=== PATIENT | male | born 1955 | race African-American/Black ===

== ENCOUNTER 2016-11-26 17:45 | Inpatient (IN) | payer MEDICARE, MEDICAID ==
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
[2016-11-26] MEDS ORDERED: Maalox 30 mL Cup PO PRN (20:35)
[2016-11-27] MEDS: Atorvastatin Calcium 10 MG TAB PO SCH ×2 (00:04→22:02)
[2016-11-27] MEDS: Lactulose 10 Gm/15 mL 30mL UDC PO SCH ×2 (00:04→22:03)
[2016-11-27 01:25] VITALS: BP 198/85
[2016-11-27] MEDS: Benztropine 1 MG TAB PO SCH ×3 (08:36→18:13)
[2016-11-27] MEDS: Levothyroxine 0.05 Mg Tab PO SCH ×2 (08:37→09:12)
[2016-11-27] MEDS: Aspirin 81mg Chewable Tab PO SCH (08:37)
[2016-11-27] MEDS: Pantoprazole 40 mg EC Tab PO SCH ×2 (08:37→09:12)
[2016-11-27] MEDS: Vitamin B Complex w/Vitamin C Tab PO SCH ×2 (08:37→09:12)
[2016-11-27] MEDS ORDERED: Influenza Vaccine 0.5 mL Syr IM ONE (09:00)
--- NOTE | 2016-11-27 19:22 | Internal Medicine Prog Note ---
Internal Medicine Subjective - Subjective Service Date: 11/27/16 ([facility] [id number]) Internal Medicine Objective - Results Recent Labs: Laboratory Last Values POC Glucose 80 MG/DL (70 - 105) 11/26/16 23:58 - Physical Exam Vitals and I&O: Vital Signs Temp 98.3 F 11/27/16 16:00 Pulse 60 11/27/16 18:13 Resp 16 11/27/16 16:00 BP 138/85 11/27/16 18:13 Pulse Ox 96 11/27/16 16:00 Intake & Output 11/27/16 11/27/16 11/28/16 06:59 18:59 06:59 Intake Total 240 Balance 240 Weight (lbs) 168 lb 168 lb Intake: Oral 240 Other: # Voids 1 3 Active Medications: Current Medications Acetaminophen/Hydrocodone Bitart ([place] 5mg/325mg) 1 tab PO Q6H PRN PRN Reason: PAIN Stop: 01/25/17 19:58 Al Hydrox/Mg Hydrox/Simethicone (Maalox) 30 ml PO DAILY PRN PRN Reason: Upset Stomach / Indigestion Stop: 01/25/17 20:34 Ascorbic Acid (Vitamin C) 500 mg PO DAILY [facility] Stop: 01/26/17 08:59 Last Admin: 11/27/16 09:11 Dose: Not Given Aspirin (Aspirin Chewable) 81 mg PO DAILY [facility] Stop: 01/26/17 08:59 Last Admin: 11/27/16 08:37 Dose: 81 mg Atorvastatin Calcium (Lipitor) 10 mg PO HS JOHN PRN Reason: Protocol Stop: 01/25/17 20:59 Last Admin: 11/27/16 00:04 Dose: 10 mg Benztropine Mesylate (Cogentin) 1 mg PO BID JOHN Stop: 01/26/17 08:59 Last Admin: 11/27/16 18:13 Dose: 1 mg Bisacodyl (Dulcolax 5 Mg Ec Tab) 10 mg PO DAILY PRN PRN Reason: Constipation Stop: 01/25/17 19:58 Divalproex Sodium (Depakote Dr) 500 mg PO DAILY JOHN PRN Reason: Protocol Stop: 01/26/17 08:59 Last Admin: 11/27/16 09:12 Dose: Not Given Folic Acid (Folate) 1 mg PO DAILY [facility] Stop: 01/26/17 08:59 Last Admin: 11/27/16 09:12 Dose: Not Given Lactulose (Cephulac) 10 gm PO HS JOHN Stop: 01/25/17 20:59 Last Admin: 11/27/16 00:04 Dose: 10 gm Levothyroxine Sodium (Synthroid) 0.05 mg PO DAILY JOHN Stop: 01/26/17 08:59 Last Admin: 11/27/16 09:12 Dose: Not Given Lisinopril (Zestril) 10 mg PO BID JOHN Stop: 01/26/17 08:59 Last Admin: 11/27/16 18:13 Dose: 10 mg Pantoprazole Sodium (Protonix) 40 mg PO DAILY JOHN Stop: 01/26/17 08:59 Last Admin: 11/27/16 09:12 Dose: Not Given Sevelamer HCl (Renagel) 2,400 mg PO AC [facility] Stop: 01/26/17 07:29 Last Admin: 11/27/16 18:12 Dose: 2,400 mg Thiamine HCl (Vitamin B1) 100 mg PO DAILY JOHN Stop: 01/26/17 08:59 Last Admin: 11/27/16 09:12 Dose: Not Given Vitamin B Complex/Vit C/Folic Acid (Vitamin B Complex W/Vitamin C) 1 tab PO DAILY JOHN Stop: 01/26/17 08:59 Last Admin: 11/27/16 09:12 Dose: Not Given Ziprasidone (Geodon) 60 mg PO BID [facility] Stop: 01/26/17 08:59 Internal Medicine Assmt/Plan - Assessment Assessment: ALOC FAILURE TO THRIVE 51/50 ESRD ON HD ANEMIA GERD COPD PARANOID SCHIZOPHRENIA Nutritional Asmnt/Malnutr-PDOC - Dietary Evaluation Malnutrition Findings (Please click <Entered> for more info): Nutritional Asmnt/Malnutrition Start: 11/27/16 16: 41 Text: Status: Complete Freq: Document 11/27/16 16:42 JIMMY (Rec: 11/27/16 16:52 JIMMY [email or web address]) Nutritional Asmnt/Malnutrition Patient General Information Nutritional Screening Consult Diagnosis ALOC, FTT Pertinent Medical Hx/Surgical Hx HTN, asthma/COPD, arthritis, HLD, chronic pain syndrome per MD notes Subjective Information RD received Nutrition Consult for FTT. Pt also seen for high risk trigger: FTT. Pt seen resting in bed while covered in blankets. Pt appeared of tall stature. Pt confirmed anthropometrics; pt stated he is 6'4" and UBW of 165 lb, 75 kg. Pt reported that he enjoys breakfast meals most, and prefers sausage, cream of wheat, hot cereals, hot foods, and Rice Krispies. Pt also requested double portions. RD to notify [facility] staff regarding pt's preferences. Pt denied any supplement use. Pt reported BM x1 (green in color, but solid ). Pt reported that he has been on dialysis since 2004. Per RN, no pending plans/ procedures. Per EMR, abd is soft and non- tender. I/O: 240/0 (+240 ml) per 12 hours. Current diet is adequate and appropriate. RD offered nutrition education; pt declined. Pt is familiar w/ foods high in potassium, sodium, and phosphorus when asked by RD. RD encouraged pt to try to maintain renal diet restrictions for improved kidney function. Current Diet Order/ Nutrition Support Renal Patient / S.O Can Pertinent Medications lipitor, renagel Pertinent Labs 11/26/16: POC BG 80 WNL Nutritional Hx/Data Height 6 ft 4 in Height (Calculated Centimeters) 193.0 Current Weight (lbs) 168 lb Weight (Calculated Kilograms) 76.2 Weight (Calculated Grams) 27520.5 Usual body Weight (lbs) 165 % Usual Body Weight 102 [place] Body Weight 202 lb, 92 kg % [place] Body Weight 83 Recent Weight Change No Weight Status Approriate GI Symptoms GI Symptoms None Food Allergies No Current %PO Fair (50-74%) Estimated Nutritional Goals BEE in Kcals: Using Current wt Calories/Kcals/Kg 25-30 kcal/kg CBW for maintenance Kcals Calculated 2843-0593 kcal/day Protein: Using Current wt Protein g/k.2-1.5 gm/kg CBW for renal failure on HD Protein Calculated 91-114 gm/day Fluid: ml Per MD (renal failure) Nutritional Problem 1. Problem Problem Inadequate nutritional intakes Etiology related to lack of appetite/ preference for foods Signs/Symptoms: as evidenced by pt report and Dx of FTT. Malnutrition Alert Is there a minimum of two criteria No selected? Query Text:Check all the applicable criteria. A minimum of two criteria are recommended for diagnosis of either severe or non-severe malnutrition. Malnutrition Related to Morbid Obesity Malnutrition related to morbid obesity No Intervention/Recommendation Recommendations by RD Dietary Education by RD1 Increase Calorie Intake Comments * Recommend continuing renal diet per MD Expected Outcomes/Goals Expected Outcomes/Goals - Monitor appetite and PO intakes w/ goal of pt meeting at least 75% of estimated nutritional needs, labs trending WNL, normal GI function, and skin integrity/ wt maintenance within 3-5 days 11/27/16 16:51 Dietitian Notes by Kenney Quinones. Charlotte Room/Bed: [facility] Dietitian Recommendation * Recommend continuing renal diet per MD Please refer to Nutrition Assessment for details. Initialized on 11/27/16 16:51 - END OF NOTE
--- NOTE | 2016-11-27 22:02 | History & Physical ---
ADMIT DATE: 11/27/2016 DICTATED FOR: Dr. Gabriel Coleman. CHIEF COMPLAINT: Altered mental status. HISTORY OF PRESENT ILLNESS: This is a 61-year-old male, who is a resident of [facility], who was brought here to [facility] for altered mental status. Also the patient has been refusing treatments with aggressive behavior. The patient is a hemodialysis patient, receiving dialysis every Tuesdays, and Saturdays. PAST MEDICAL HISTORY: Acute kidney failure, paranoid schizophrenia, hemodialysis, hyperlipidemia hypothyroidism, anemia, GERD and COPD. FAMILY HISTORY: Noncontributory. PAST SURGICAL HISTORY: . PSYCHIATRIC HISTORY: Paranoid schizophrenia. FAMILY HISTORY: Noncontributory. REVIEW OF SYSTEMS: GENERAL: Denies any fevers and chills. CARDIOVASCULAR: Denies chest pain. RESPIRATORY: Denies shortness of breath. GASTROINTESTINAL: Denies nausea, vomiting, abdominal pain. GENITOURINARY: Denies dysuria. All other systems are reviewed and are negative. PHYSICAL EXAMINATION: GENERAL: The patient is a well-developed, well-nourished, no acute distress. VITAL SIGNS: Temperature 98.3, heart rate 60, blood pressure 138/85, respirations 16, O2 of 96%. HEENT: Head; normocephalic, atraumatic. NECK: Supple. No mass. LUNGS: Clear bilaterally. HEART: Regular rhythm. ABDOMEN: Soft, nontender. LABORATORY DATA: The patient refused to have labs drawn. He states that he gets his labs drawn during on dialysis day. ASSESSMENT: Altered level of consciousness, failure to thrive, aggressive behavior on 5150, end stage renal disease on hemodialysis, paranoid schizophrenia, hyperlipidemia, gastroesophageal reflux disease, hypothyroidism, and chronic obstructive pulmonary disease. PLAN: The patient is admitted to the med/surg unit. We will get nephrology on the case as well as Psychiatry. Keep the patient on renal diet, hemodialysis as well. We will continue to follow this patient. JOB# [id number]
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
[2016-11-28] MEDS: Vitamin B Complex w/Vitamin C Tab PO SCH (08:43)
[2016-11-28] MEDS: Benztropine 1 MG TAB PO SCH ×2 (08:43→17:45)
[2016-11-28] MEDS: Aspirin 81mg Chewable Tab PO SCH (08:43)
[2016-11-28] MEDS: Pantoprazole 40 mg EC Tab PO SCH (08:44)
[2016-11-28] MEDS: Levothyroxine 0.05 Mg Tab PO SCH (08:46)
[2016-11-28 09:53] LABS: % EOSINOPHILS 8.3 % (0.0-5.0); % LYMPHOCYTES 22.1 % (20.0-50.0); % MONOCYTES 7.7 % (2.0-10.0); % NEUTROPHILS 61.9 % (40.0-80.0); HEMATOCRIT 26.1 % (41.0-60); HEMOGLOBIN 8.5 gm/dL (12-16); MEAN CELL VOLUME 83.3 fl (80-99); MEAN CORPUSCULAR HGB CONC 32.5 pg (28.0-36.0); PLATELET COUNT 194 Th/cmm (150-400); RED BLOOD COUNT 3.14 Mil/cmm (4.30-5.70); RED CELL DISTRIBUTION WIDTH 16.5 % (11.5-20.0); WHITE BLOOD COUNT 4.9 Th/cmm (4.8-10.8)
[2016-11-28 10:10] LABS: ALB/GLOB RATIO 1.1 (1.0-1.8); ANION GAP 10.4 (7.0-16.0); BILIRUBIN,TOTAL 0.4 mg/dL (0.3-1.0); BUN/CREATININE RATIO 4.1; CALCIUM SERUM 9.5 mg/dL (8.6-10.3); CARBON DIOXIDE 32.5 mEq/L (21.0-31.0); POTASSIUM SERUM 3.9 mEq/L (3.5-5.1)
[2016-11-28 10:12] LABS: CREATININE - SERUM 8.8 mg/dL (0.7-1.3)
--- NOTE | 2016-11-28 11:21 | General Progress Note ---
Subjective - Review of Systems Service Date: 11/28/16 (NEPHROLOGY NOTE) Events since last encounter: NONE NEW Subjective: NO COMPLAINTS. CONFUSED. GETTING HD. Objective - Results Result Diagrams: 11/28/16 09:40 11/28/16 09:40 Recent Labs: Laboratory Last Values WBC 4.9 Th/cmm (4.8-10.8) 11/28/16 09:40 RBC 3.14 Mil/cmm (4.30-5.70) L 11/28/16 09:40 Hgb 8.5 gm/dL (12-16) L 11/28/16 09:40 Hct 26.1 % (41.0-60) L 11/28/16 09:40 MCV 83.3 fl (80-99) 11/28/16 09:40 MCH 27.0 pg (26.0-30.0) 11/28/16 09:40 MCHC Differential 32.5 pg (28.0-36.0) 11/28/16 09:40 RDW 16.5 % (11.5-20.0) 11/28/16 09:40 Plt Count 194 Th/cmm (150-400) 11/28/16 09:40 MPV 8.0 fl 11/28/16 09:40 Neutrophils % 61.9 % (40.0-80.0) 11/28/16 09:40 Lymphocytes % 22.1 % (20.0-50.0) 11/28/16 09:40 Monocytes % 7.7 % (2.0-10.0) 11/28/16 09:40 Eosinophils % 8.3 % (0.0-5.0) H 11/28/16 09:40 Basophils % 0.0 % (0.0-2.0) 11/28/16 09:40 Sodium 137 mEq/L (136-145) 11/28/16 09:40 Potassium 3.9 mEq/L (3.5-5.1) 11/28/16 09:40 Chloride 98 mEq/L (98-107) 11/28/16 09:40 Carbon Dioxide 32.5 mEq/L (21.0-31.0) H 11/28/16 09:40 Anion Gap 10.4 (7.0-16.0) 11/28/16 09:40 BUN 36 mg/dL (7-25) H 11/28/16 09:40 Creatinine 8.8 mg/dL (0.7-1.3) H* 11/28/16 09:40 Est GFR ( Amer) 7.9 ml/min (>90) 11/28/16 09:40 Est GFR (Non-Af Amer) 6.6 ml/min 11/28/16 09:40 BUN/Creatinine Ratio 4.1 11/28/16 09:40 Glucose 133 mg/dL (70-105) H 11/28/16 09:40 POC Glucose 80 MG/DL (70 - 105) 11/26/16 23:58 Calcium 9.5 mg/dL (8.6-10.3) 11/28/16 09:40 Phosphorus 5.2 mg/dL (2.5-5.0) H 11/28/16 09:40 Total Bilirubin 0.4 mg/dL (0.3-1.0) 11/28/16 09:40 AST 12 U/L (13-39) L 11/28/16 09:40 ALT 5 U/L (7-52) L 11/28/16 09:40 Alkaline Phosphatase 126 U/L (34-104) H 11/28/16 09:40 Total Protein 5.8 gm/dL (6.0-8.3) L 11/28/16 09:40 Albumin 3.0 gm/dL (4.2-5.5) L 11/28/16 09:40 Globulin 2.8 gm/dL 11/28/16 09:40 Albumin/Globulin Ratio 1.1 (1.0-1.8) 11/28/16 09:40 - Physical Exam Vitals and I&O: Vital Signs Temp 98.3 F 11/28/16 08:00 Pulse 56 11/28/16 08:45 Resp 16 11/28/16 08:00 BP 142/67 11/28/16 08:00 Pulse Ox 96 11/28/16 08:00 Intake & Output 11/27/16 11/28/16 11/28/16 18:59 06:59 18:59 Weight (lbs) 76.204 kg Other: # Voids 3 Active Medications: Current Medications Acetaminophen/Hydrocodone Bitart ([place] 5mg/325mg) 1 tab PO Q6H PRN PRN Reason: PAIN Stop: 01/25/17 19:58 Al Hydrox/Mg Hydrox/Simethicone (Maalox) 30 ml PO DAILY PRN PRN Reason: Upset Stomach / Indigestion Stop: 01/25/17 20:34 Ascorbic Acid (Vitamin C) 500 mg PO DAILY [facility] Stop: 01/26/17 08:59 Last Admin: 11/28/16 08:46 Dose: Not Given Aspirin (Aspirin Chewable) 81 mg PO DAILY JOHN Stop: 01/26/17 08:59 Last Admin: 11/28/16 08:43 Dose: 81 mg Atorvastatin Calcium (Lipitor) 10 mg PO HS JOHN PRN Reason: Protocol Stop: 01/25/17 20:59 Last Admin: 11/27/16 22:02 Dose: Not Given Benztropine Mesylate (Cogentin) 1 mg PO BID [facility] Stop: 01/26/17 08:59 Last Admin: 11/28/16 08:43 Dose: 1 mg Bisacodyl (Dulcolax 5 Mg Ec Tab) 10 mg PO DAILY PRN PRN Reason: Constipation Stop: 01/25/17 19:58 Divalproex Sodium (Depakote Dr) 500 mg PO DAILY [facility] PRN Reason: Protocol Stop: 01/26/17 08:59 Last Admin: 11/28/16 08:44 Dose: Not Given Folic Acid (Folate) 1 mg PO DAILY [facility] Stop: 01/26/17 08:59 Last Admin: 11/28/16 08:44 Dose: Not Given Lactulose (Cephulac) 10 gm PO HS [facility] Stop: 01/25/17 20:59 Last Admin: 11/27/16 22:03 Dose: Not Given Levothyroxine Sodium (Synthroid) 0.05 mg PO DAILY [facility] Stop: 01/26/17 08:59 Last Admin: 11/28/16 08:46 Dose: 0.05 mg Lisinopril (Zestril) 10 mg PO BID [facility] Stop: 01/26/17 08:59 Last Admin: 11/28/16 08:45 Dose: Not Given Pantoprazole Sodium (Protonix) 40 mg PO DAILY [facility] Stop: 01/26/17 08:59 Last Admin: 11/28/16 08:44 Dose: 40 mg Sevelamer HCl (Renagel) 2,400 mg PO AC [facility] Stop: 01/26/17 07:29 Last Admin: 11/28/16 09:06 Dose: Not Given Thiamine HCl (Vitamin B1) 100 mg PO DAILY JOHN Stop: 01/26/17 08:59 Last Admin: 11/28/16 08:43 Dose: Not Given Vitamin B Complex/Vit C/Folic Acid (Vitamin B Complex W/Vitamin C) 1 tab PO DAILY JOHN Stop: 01/26/17 08:59 Last Admin: 11/28/16 08:43 Dose: Not Given Ziprasidone (Geodon) 60 mg PO BID JOHN Stop: 01/26/17 08:59 Physical Exam: AAOX3 NAD HEAD NC/AT SCLERAE ANICTERIC OP MOIST NECK SUPPLE CV RRR LUNGS CTA B ABD SOFT NTND EXT NO EDEMA RUE AVF CANNULATED ON HD Assessment/Plan - Problem List Patient Problems: All Active Problems AGGRESSION TOWARD OTHERS; 51/50 STATUS (Acute) - Assessment Assessment: 1. ESRD/DIALYSIS STATUS 2. HTN WITH ESRD 3. ANEMIA WITH ESRD 4. PSYCHOSIS 5. HYPERLIPIDEMIA - Plan Plan: DIALYSIS TODAY BP CONTROLLED F/U PSYCH SUPPORTIVE CARE SEEN & EXAMINED ON DIALYSIS Nutritional Asmnt/Malnutr-PDOC - Dietary Evaluation Malnutrition Findings (Please click <Entered> for more info): Nutritional Asmnt/Malnutrition Start: 11/27/16 16: 41 Text: Status: Complete Freq: Document 11/27/16 16:42 JIMMY (Rec: 11/27/16 16:52 [email or web address] [email or web address] -[email or web address]) Nutritional Asmnt/Malnutrition Patient General Information Nutritional Screening Consult Diagnosis ALOC, FTT Pertinent Medical Hx/Surgical Hx HTN, asthma/COPD, arthritis, HLD, chronic pain syndrome per MD notes Subjective Information RD received Nutrition Consult for FTT. Pt also seen for high risk trigger: FTT. Pt seen resting in bed while covered in blankets. Pt appeared of tall stature. Pt confirmed anthropometrics; pt stated he is 6'4" and UBW of 165 lb, 75 kg. Pt reported that he enjoys breakfast meals most, and prefers sausage, cream of wheat, hot cereals, hot foods, and Rice Krispies. Pt also requested double portions. RD to notify [facility] staff regarding pt's preferences. Pt denied any supplement use. Pt reported BM x1 (green in color, but solid ). Pt reported that he has been on dialysis since 2004. Per RN, no pending plans/ procedures. Per EMR, abd is soft and non- tender. I/O: 240/0 (+240 ml) per 12 hours. Current diet is adequate and appropriate. RD offered nutrition education; pt declined. Pt is familiar w/ foods high in potassium, sodium, and phosphorus when asked by RD. RD encouraged pt to try to maintain renal diet restrictions for improved kidney function. Current Diet Order/ Nutrition Support Renal Patient / S.O Can Pertinent Medications lipitor, renagel Pertinent Labs 11/26/16: POC BG 80 WNL Nutritional Hx/Data Height 1.93 m Height (Calculated Centimeters) 193.0 Current Weight (lbs) 76.204 kg Weight (Calculated Kilograms) 76.2 Weight (Calculated Grams) 52434.5 Usual body Weight (lbs) 165 % Usual Body Weight 102 [place] Body Weight 202 lb, 92 kg % [place] Body Weight 83 Recent Weight Change No Weight Status Approriate GI Symptoms GI Symptoms None Food Allergies No Current %PO Fair (50-74%) Estimated Nutritional Goals BEE in Kcals: Using Current wt Calories/Kcals/Kg 25-30 kcal/kg CBW for maintenance Kcals Calculated 0932-7039 kcal/day Protein: Using Current wt Protein g/k.2-1.5 gm/kg CBW for renal failure on HD Protein Calculated 91-114 gm/day Fluid: ml Per MD (renal failure) Nutritional Problem 1. Problem Problem Inadequate nutritional intakes Etiology related to lack of appetite/ preference for foods Signs/Symptoms: as evidenced by pt report and Dx of FTT. Malnutrition Alert Is there a minimum of two criteria No selected? Query Text:Check all the applicable criteria. A minimum of two criteria are recommended for diagnosis of either severe or non-severe malnutrition. Malnutrition Related to Morbid Obesity Malnutrition related to morbid obesity No Intervention/Recommendation Recommendations by RD Dietary Education by RD1 Increase Calorie Intake Comments * Recommend continuing renal diet per MD Expected Outcomes/Goals Expected Outcomes/Goals - Monitor appetite and PO intakes w/ goal of pt meeting at least 75% of estimated nutritional needs, labs trending WNL, normal GI function, and skin integrity/ wt maintenance within 3-5 days 11/27/16 16:51 Dietitian Notes by Ma. Charlotte Quinones Room/Bed: [facility] Dietitian Recommendation * Recommend continuing renal diet per MD Please refer to Nutrition Assessment for details. Initialized on 11/27/16 16:51 - END OF NOTE
--- NOTE | 2016-11-28 13:36 | Internal Medicine Prog Note ---
Internal Medicine Subjective - Subjective Patient seen and examined:: with staff, chart reviewed Patient is:: awake, verbal, interactive, confused Patient Complaints of:: congestion, unable to sleep Per staff patient has:: no adverse event, eating well, refusing care Internal Medicine Objective - Results Result Diagrams: 11/28/16 09:40 11/28/16 09:40 Recent Labs: Laboratory Last Values WBC 4.9 Th/cmm (4.8-10.8) 11/28/16 09:40 RBC 3.14 Mil/cmm (4.30-5.70) L 11/28/16 09:40 Hgb 8.5 gm/dL (12-16) L 11/28/16 09:40 Hct 26.1 % (41.0-60) L 11/28/16 09:40 MCV 83.3 fl (80-99) 11/28/16 09:40 MCH 27.0 pg (26.0-30.0) 11/28/16 09:40 MCHC Differential 32.5 pg (28.0-36.0) 11/28/16 09:40 RDW 16.5 % (11.5-20.0) 11/28/16 09:40 Plt Count 194 Th/cmm (150-400) 11/28/16 09:40 MPV 8.0 fl 11/28/16 09:40 Neutrophils % 61.9 % (40.0-80.0) 11/28/16 09:40 Lymphocytes % 22.1 % (20.0-50.0) 11/28/16 09:40 Monocytes % 7.7 % (2.0-10.0) 11/28/16 09:40 Eosinophils % 8.3 % (0.0-5.0) H 11/28/16 09:40 Basophils % 0.0 % (0.0-2.0) 11/28/16 09:40 Sodium 137 mEq/L (136-145) 11/28/16 09:40 Potassium 3.9 mEq/L (3.5-5.1) 11/28/16 09:40 Chloride 98 mEq/L (98-107) 11/28/16 09:40 Carbon Dioxide 32.5 mEq/L (21.0-31.0) H 11/28/16 09:40 Anion Gap 10.4 (7.0-16.0) 11/28/16 09:40 BUN 36 mg/dL (7-25) H 11/28/16 09:40 Creatinine 8.8 mg/dL (0.7-1.3) H* 11/28/16 09:40 Est GFR ( Amer) 7.9 ml/min (>90) 11/28/16 09:40 Est GFR (Non-Af Amer) 6.6 ml/min 11/28/16 09:40 BUN/Creatinine Ratio 4.1 11/28/16 09:40 Glucose 133 mg/dL (70-105) H 11/28/16 09:40 POC Glucose 80 MG/DL (70 - 105) 11/26/16 23:58 Calcium 9.5 mg/dL (8.6-10.3) 11/28/16 09:40 Phosphorus 5.2 mg/dL (2.5-5.0) H 11/28/16 09:40 Total Bilirubin 0.4 mg/dL (0.3-1.0) 11/28/16 09:40 AST 12 U/L (13-39) L 11/28/16 09:40 ALT 5 U/L (7-52) L 11/28/16 09:40 Alkaline Phosphatase 126 U/L (34-104) H 11/28/16 09:40 Total Protein 5.8 gm/dL (6.0-8.3) L 11/28/16 09:40 Albumin 3.0 gm/dL (4.2-5.5) L 11/28/16 09:40 Globulin 2.8 gm/dL 11/28/16 09:40 Albumin/Globulin Ratio 1.1 (1.0-1.8) 11/28/16 09:40 - Physical Exam Vitals and I&O: Vital Signs Temp 98.3 F 11/28/16 08:00 Pulse 56 11/28/16 08:45 Resp 16 11/28/16 08:00 BP 142/67 11/28/16 08:00 Pulse Ox 96 11/28/16 08:00 Intake & Output 11/27/16 11/28/16 11/28/16 18:59 06:59 18:59 Weight (lbs) 76.204 kg Other: # Voids 3 Active Medications: Current Medications Acetaminophen/Hydrocodone Bitart ([place] 5mg/325mg) 1 tab PO Q6H PRN PRN Reason: PAIN Stop: 01/25/17 19:58 Al Hydrox/Mg Hydrox/Simethicone (Maalox) 30 ml PO DAILY PRN PRN Reason: Upset Stomach / Indigestion Stop: 01/25/17 20:34 Ascorbic Acid (Vitamin C) 500 mg PO DAILY JOHN Stop: 01/26/17 08:59 Last Admin: 11/28/16 08:46 Dose: Not Given Aspirin (Aspirin Chewable) 81 mg PO DAILY JOHN Stop: 01/26/17 08:59 Last Admin: 11/28/16 08:43 Dose: 81 mg Atorvastatin Calcium (Lipitor) 10 mg PO HS JOHN PRN Reason: Protocol Stop: 01/25/17 20:59 Last Admin: 11/27/16 22:02 Dose: Not Given Benztropine Mesylate (Cogentin) 1 mg PO BID JOHN Stop: 01/26/17 08:59 Last Admin: 11/28/16 08:43 Dose: 1 mg Bisacodyl (Dulcolax 5 Mg Ec Tab) 10 mg PO DAILY PRN PRN Reason: Constipation Stop: 01/25/17 19:58 Divalproex Sodium (Depakote Dr) 500 mg PO DAILY JOHN PRN Reason: Protocol Stop: 01/26/17 08:59 Last Admin: 11/28/16 08:44 Dose: Not Given Folic Acid (Folate) 1 mg PO DAILY JOHN Stop: 01/26/17 08:59 Last Admin: 11/28/16 08:44 Dose: Not Given Lactulose (Cephulac) 10 gm PO HS JOHN Stop: 01/25/17 20:59 Last Admin: 11/27/16 22:03 Dose: Not Given Levothyroxine Sodium (Synthroid) 0.05 mg PO DAILY JOHN Stop: 01/26/17 08:59 Last Admin: 11/28/16 08:46 Dose: 0.05 mg Lisinopril (Zestril) 10 mg PO BID JOHN Stop: 01/26/17 08:59 Last Admin: 11/28/16 08:45 Dose: Not Given Pantoprazole Sodium (Protonix) 40 mg PO DAILY JOHN Stop: 01/26/17 08:59 Last Admin: 11/28/16 08:44 Dose: 40 mg Sevelamer Carbonate (Renvela) 2,400 mg PO AC JOHN Stop: 01/26/17 07:29 Thiamine HCl (Vitamin B1) 100 mg PO DAILY JOHN Stop: 01/26/17 08:59 Last Admin: 11/28/16 08:43 Dose: Not Given Vitamin B Complex/Vit C/Folic Acid (Vitamin B Complex W/Vitamin C) 1 tab PO DAILY JOHN Stop: 01/26/17 08:59 Last Admin: 11/28/16 08:43 Dose: Not Given Ziprasidone (Geodon) 60 mg PO BID JOHN Stop: 01/26/17 08:59 General: congested, demented HEENT: NC/AT, PERRLA, EOMI, poor dentition Neck: Supple, No JVD, No thyromegaly Lungs: CTAB Cardiovascular: RRR, Normal S1, Normal S2, without murmur Abdomen: soft, non-tender, globular Extremities: excoriation, contracture Neurological: no change, lethargic, disorganized Internal Medicine Assmt/Plan - Assessment Assessment: ALOC FAILURE TO THRIVE 51/50 ESRD ON HD ANEMIA GERD COPD PARANOID SCHIZOPHRENIA - Plan Plan: cont on hd per renal renal diet will review labx psych follow up on 5150 dw rn Nutritional Asmnt/Malnutr-PDOC - Dietary Evaluation Malnutrition Findings (Please click <Entered> for more info): Nutritional Asmnt/Malnutrition Start: 11/27/16 16: 41 Text: Status: Complete Freq: Document 11/27/16 16:42 JIMMY (Rec: 11/27/16 16:52 JIMMY HOLLINGSWORTH [email or web address]) Nutritional Asmnt/Malnutrition Patient General Information Nutritional Screening Consult Diagnosis ALOC, FTT Pertinent Medical Hx/Surgical Hx HTN, asthma/COPD, arthritis, HLD, chronic pain syndrome per MD notes Subjective Information RD received Nutrition Consult for FTT. Pt also seen for high risk trigger: FTT. Pt seen resting in bed while covered in blankets. Pt appeared of tall stature. Pt confirmed anthropometrics; pt stated he is 6'4" and UBW of 165 lb, 75 kg. Pt reported that he enjoys breakfast meals most, and prefers sausage, cream of wheat, hot cereals, hot foods, and Rice Krispies. Pt also requested double portions. RD to notify [facility] staff regarding pt's preferences. Pt denied any supplement use. Pt reported BM x1 (green in color, but solid ). Pt reported that he has been on dialysis since 2004. Per RN, no pending plans/ procedures. Per EMR, abd is soft and non- tender. I/O: 240/0 (+240 ml) per 12 hours. Current diet is adequate and appropriate. RD offered nutrition education; pt declined. Pt is familiar w/ foods high in potassium, sodium, and phosphorus when asked by RD. RD encouraged pt to try to maintain renal diet restrictions for improved kidney function. Current Diet Order/ Nutrition Support Renal Patient / S.O Can Pertinent Medications lipitor, renagel Pertinent Labs 11/26/16: POC BG 80 WNL Nutritional Hx/Data Height 1.93 m Height (Calculated Centimeters) 193.0 Current Weight (lbs) 76.204 kg Weight (Calculated Kilograms) 76.2 Weight (Calculated Grams) 82237.5 Usual body Weight (lbs) 165 % Usual Body Weight 102 [place] Body Weight 202 lb, 92 kg % [place] Body Weight 83 Recent Weight Change No Weight Status Approriate GI Symptoms GI Symptoms None Food Allergies No Current %PO Fair (50-74%) Estimated Nutritional Goals BEE in Kcals: Using Current wt Calories/Kcals/Kg 25-30 kcal/kg CBW for maintenance Kcals Calculated 7701-9342 kcal/day Protein: Using Current wt Protein g/k.2-1.5 gm/kg CBW for renal failure on HD Protein Calculated 91-114 gm/day Fluid: ml Per MD (renal failure) Nutritional Problem 1. Problem Problem Inadequate nutritional intakes Etiology related to lack of appetite/ preference for foods Signs/Symptoms: as evidenced by pt report and Dx of FTT. Malnutrition Alert Is there a minimum of two criteria No selected? Query Text:Check all the applicable criteria. A minimum of two criteria are recommended for diagnosis of either severe or non-severe malnutrition. Malnutrition Related to Morbid Obesity Malnutrition related to morbid obesity No Intervention/Recommendation Recommendations by RD Dietary Education by RD1 Increase Calorie Intake Comments * Recommend continuing renal diet per MD Expected Outcomes/Goals Expected Outcomes/Goals - Monitor appetite and PO intakes w/ goal of pt meeting at least 75% of estimated nutritional needs, labs trending WNL, normal GI function, and skin integrity/ wt maintenance within 3-5 days 11/27/16 16:51 Dietitian Notes by Kenney Quinones. [facility] Room/Bed: [facility] Dietitian Recommendation * Recommend continuing renal diet per MD Please refer to Nutrition Assessment for details. Initialized on 11/27/16 16:51 - END OF NOTE
[2016-11-28] MEDS: Atorvastatin Calcium 10 MG TAB PO SCH (20:49)
[2016-11-28] MEDS: Lactulose 10 Gm/15 mL 30mL UDC PO SCH (20:50)
[2016-11-29] MEDS: Vitamin B Complex w/Vitamin C Tab PO SCH ×2 (08:11→08:21)
[2016-11-29] MEDS: Benztropine 1 MG TAB PO SCH ×2 (08:11→17:01)
[2016-11-29] MEDS: Pantoprazole 40 mg EC Tab PO SCH (08:12)
[2016-11-29] MEDS: Aspirin 81mg Chewable Tab PO SCH (08:13)
[2016-11-29] MEDS: Levothyroxine 0.05 Mg Tab PO SCH (08:13)
--- NOTE | 2016-11-29 10:17 | General Progress Note ---
Subjective - Review of Systems Service Date: 11/29/16 Events since last encounter: none new dialyzed yesterday Subjective: HE DENIES COMPLAINTS. Objective - Results Result Diagrams: 11/28/16 09:40 11/28/16 09:40 Recent Labs: Laboratory Last Values WBC 4.9 Th/cmm (4.8-10.8) 11/28/16 09:40 RBC 3.14 Mil/cmm (4.30-5.70) L 11/28/16 09:40 Hgb 8.5 gm/dL (12-16) L 11/28/16 09:40 Hct 26.1 % (41.0-60) L 11/28/16 09:40 MCV 83.3 fl (80-99) 11/28/16 09:40 MCH 27.0 pg (26.0-30.0) 11/28/16 09:40 MCHC Differential 32.5 pg (28.0-36.0) 11/28/16 09:40 RDW 16.5 % (11.5-20.0) 11/28/16 09:40 Plt Count 194 Th/cmm (150-400) 11/28/16 09:40 MPV 8.0 fl 11/28/16 09:40 Neutrophils % 61.9 % (40.0-80.0) 11/28/16 09:40 Lymphocytes % 22.1 % (20.0-50.0) 11/28/16 09:40 Monocytes % 7.7 % (2.0-10.0) 11/28/16 09:40 Eosinophils % 8.3 % (0.0-5.0) H 11/28/16 09:40 Basophils % 0.0 % (0.0-2.0) 11/28/16 09:40 Sodium 137 mEq/L (136-145) 11/28/16 09:40 Potassium 3.9 mEq/L (3.5-5.1) 11/28/16 09:40 Chloride 98 mEq/L (98-107) 11/28/16 09:40 Carbon Dioxide 32.5 mEq/L (21.0-31.0) H 11/28/16 09:40 Anion Gap 10.4 (7.0-16.0) 11/28/16 09:40 BUN 36 mg/dL (7-25) H 11/28/16 09:40 Creatinine 8.8 mg/dL (0.7-1.3) H* 11/28/16 09:40 Est GFR ( Amer) 7.9 ml/min (>90) 11/28/16 09:40 Est GFR (Non-Af Amer) 6.6 ml/min 11/28/16 09:40 BUN/Creatinine Ratio 4.1 11/28/16 09:40 Glucose 133 mg/dL (70-105) H 11/28/16 09:40 POC Glucose 80 MG/DL (70 - 105) 11/26/16 23:58 Calcium 9.5 mg/dL (8.6-10.3) 11/28/16 09:40 Phosphorus 5.2 mg/dL (2.5-5.0) H 11/28/16 09:40 Total Bilirubin 0.4 mg/dL (0.3-1.0) 11/28/16 09:40 AST 12 U/L (13-39) L 11/28/16 09:40 ALT 5 U/L (7-52) L 11/28/16 09:40 Alkaline Phosphatase 126 U/L (34-104) H 11/28/16 09:40 Total Protein 5.8 gm/dL (6.0-8.3) L 11/28/16 09:40 Albumin 3.0 gm/dL (4.2-5.5) L 11/28/16 09:40 Globulin 2.8 gm/dL 11/28/16 09:40 Albumin/Globulin Ratio 1.1 (1.0-1.8) 11/28/16 09:40 - Physical Exam Vitals and I&O: Vital Signs Temp 98 F 11/29/16 04:00 Pulse 90 11/29/16 08:12 Resp 16 11/29/16 08:25 BP 158/95 11/29/16 08:12 Pulse Ox 98 11/29/16 04:00 Intake & Output 11/28/16 11/29/16 11/29/16 18:59 06:59 18:59 Intake Total 500 200 Output Total 1999 Balance -1500 200 Weight (lbs) 76.204 kg 74.389 kg Intake: Oral 500 200 Output: Hemodialysis 1999 Other: # Voids 0 1 # Bowel Movements 0 Active Medications: Current Medications Acetaminophen/Hydrocodone Bitart ([place] 5mg/325mg) 1 tab PO Q6H PRN PRN Reason: PAIN Stop: 01/25/17 19:58 Al Hydrox/Mg Hydrox/Simethicone (Maalox) 30 ml PO DAILY PRN PRN Reason: Upset Stomach / Indigestion Stop: 01/25/17 20:34 Ascorbic Acid (Vitamin C) 500 mg PO DAILY [facility] Stop: 01/26/17 08:59 Last Admin: 11/29/16 08:20 Dose: Not Given Aspirin (Aspirin Chewable) 81 mg PO DAILY JOHN Stop: 01/26/17 08:59 Last Admin: 11/29/16 08:13 Dose: 81 mg Atorvastatin Calcium (Lipitor) 10 mg PO HS JOHN PRN Reason: Protocol Stop: 01/25/17 20:59 Last Admin: 11/28/16 20:49 Dose: Not Given Benztropine Mesylate (Cogentin) 1 mg PO BID [facility] Stop: 01/26/17 08:59 Last Admin: 11/29/16 08:11 Dose: 1 mg Bisacodyl (Dulcolax 5 Mg Ec Tab) 10 mg PO DAILY PRN PRN Reason: Constipation Stop: 01/25/17 19:58 Divalproex Sodium (Depakote Dr) 500 mg PO DAILY [facility] PRN Reason: Protocol Stop: 01/26/17 08:59 Last Admin: 11/29/16 08:20 Dose: Not Given Folic Acid (Folate) 1 mg PO DAILY [facility] Stop: 01/26/17 08:59 Last Admin: 11/29/16 08:20 Dose: Not Given Lactulose (Cephulac) 10 gm PO HS [facility] Stop: 01/25/17 20:59 Last Admin: 11/28/16 20:50 Dose: Not Given Levothyroxine Sodium (Synthroid) 0.05 mg PO DAILY [facility] Stop: 01/26/17 08:59 Last Admin: 11/29/16 08:13 Dose: 0.05 mg Lisinopril (Zestril) 10 mg PO BID JOHN Stop: 01/26/17 08:59 Last Admin: 11/29/16 08:12 Dose: 10 mg Pantoprazole Sodium (Protonix) 40 mg PO DAILY [facility] Stop: 01/26/17 08:59 Last Admin: 11/29/16 08:12 Dose: 40 mg Sevelamer Carbonate (Renvela) 2,400 mg PO AC JOHN Stop: 01/26/17 07:29 Last Admin: 11/29/16 09:44 Dose: Not Given Thiamine HCl (Vitamin B1) 100 mg PO DAILY JOHN Stop: 01/26/17 08:59 Last Admin: 11/29/16 08:20 Dose: Not Given Vitamin B Complex/Vit C/Folic Acid (Vitamin B Complex W/Vitamin C) 1 tab PO DAILY JOHN Stop: 01/26/17 08:59 Last Admin: 11/29/16 08:21 Dose: Not Given Ziprasidone (Geodon) 60 mg PO BID JOHN Stop: 01/26/17 08:59 Last Admin: 11/29/16 09:48 Dose: 60 mg Physical Exam: AAOX3 NAD HEAD NC/AT SCLERAE ANICTERIC OP MOIST NECK SUPPLE CV RRR LUNGS CTA B ABD SOFT NTND EXT NO EDEMA RUE AVF +thrill/bruit Assessment/Plan - Problem List Patient Problems: All Active Problems AGGRESSION TOWARD OTHERS; 51/50 STATUS (Acute) - Assessment Assessment: 1. ESRD/DIALYSIS STATUS 2. HTN WITH ESRD 3. ANEMIA WITH ESRD 4. PSYCHOSIS 5. HYPERLIPIDEMIA - Plan Plan: DIALYSIS WEDNESDAY BP CONTROLLED F/U PSYCH SUPPORTIVE CARE ADD EPOGEN Nutritional Asmnt/Malnutr-PDOC - Dietary Evaluation Malnutrition Findings (Please click <Entered> for more info): Nutritional Asmnt/Malnutrition Start: 11/27/16 16: 41 Text: Status: Complete Freq: Document 11/27/16 16:42 JIMMY (Rec: 11/27/16 16:52 JIMMY HOLLING[place]ORTH -[email or web address]) Nutritional Asmnt/Malnutrition Patient General Information Nutritional Screening Consult Diagnosis ALOC, FTT Pertinent Medical Hx/Surgical Hx HTN, asthma/COPD, arthritis, HLD, chronic pain syndrome per MD notes Subjective Information RD received Nutrition Consult for FTT. Pt also seen for high risk trigger: FTT. Pt seen resting in bed while covered in blankets. Pt appeared of tall stature. Pt confirmed anthropometrics; pt stated he is 6'4" and UBW of 165 lb, 75 kg. Pt reported that he enjoys breakfast meals most, and prefers sausage, cream of wheat, hot cereals, hot foods, and Rice Krispies. Pt also requested double portions. RD to notify [facility] staff regarding pt's preferences. Pt denied any supplement use. Pt reported BM x1 (green in color, but solid ). Pt reported that he has been on dialysis since 2004. Per RN, no pending plans/ procedures. Per EMR, abd is soft and non- tender. I/O: 240/0 (+240 ml) per 12 hours. Current diet is adequate and appropriate. RD offered nutrition education; pt declined. Pt is familiar w/ foods high in potassium, sodium, and phosphorus when asked by RD. RD encouraged pt to try to maintain renal diet restrictions for improved kidney function. Current Diet Order/ Nutrition Support Renal Patient / S.O Can Pertinent Medications lipitor, renagel Pertinent Labs 11/26/16: POC BG 80 WNL Nutritional Hx/Data Height 1.93 m Height (Calculated Centimeters) 193.0 Current Weight (lbs) 76.204 kg Weight (Calculated Kilograms) 76.2 Weight (Calculated Grams) 31672.5 Usual body Weight (lbs) 165 % Usual Body Weight 102 [place] Body Weight 202 lb, 92 kg % [place] Body Weight 83 Recent Weight Change No Weight Status Approriate GI Symptoms GI Symptoms None Food Allergies No Current %PO Fair (50-74%) Estimated Nutritional Goals BEE in Kcals: Using Current wt Calories/Kcals/Kg 25-30 kcal/kg CBW for maintenance Kcals Calculated 5577-9814 kcal/day Protein: Using Current wt Protein g/k.2-1.5 gm/kg CBW for renal failure on HD Protein Calculated 91-114 gm/day Fluid: ml Per MD (renal failure) Nutritional Problem 1. Problem Problem Inadequate nutritional intakes Etiology related to lack of appetite/ preference for foods Signs/Symptoms: as evidenced by pt report and Dx of FTT. Malnutrition Alert Is there a minimum of two criteria No selected? Query Text:Check all the applicable criteria. A minimum of two criteria are recommended for diagnosis of either severe or non-severe malnutrition. Malnutrition Related to Morbid Obesity Malnutrition related to morbid obesity No Intervention/Recommendation Recommendations by RD Dietary Education by RD1 Increase Calorie Intake Comments * Recommend continuing renal diet per MD Expected Outcomes/Goals Expected Outcomes/Goals - Monitor appetite and PO intakes w/ goal of pt meeting at least 75% of estimated nutritional needs, labs trending WNL, normal GI function, and skin integrity/ wt maintenance within 3-5 days 11/27/16 16:51 Dietitian Notes by Kenney Quinones. [facility] Room/Bed: [facility] Dietitian Recommendation * Recommend continuing renal diet per MD Please refer to Nutrition Assessment for details. Initialized on 11/27/16 16:51 - END OF NOTE
--- NOTE | 2016-11-29 11:52 | Internal Medicine Prog Note ---
Internal Medicine Subjective - Subjective Patient seen and examined:: with staff, chart reviewed Patient is:: awake, verbal, interactive, confused Patient Complaints of:: congestion, unable to sleep Per staff patient has:: no adverse event, eating well, refusing care Internal Medicine Objective - Results Result Diagrams: 11/28/16 09:40 11/28/16 09:40 Recent Labs: Laboratory Last Values WBC 4.9 Th/cmm (4.8-10.8) 11/28/16 09:40 RBC 3.14 Mil/cmm (4.30-5.70) L 11/28/16 09:40 Hgb 8.5 gm/dL (12-16) L 11/28/16 09:40 Hct 26.1 % (41.0-60) L 11/28/16 09:40 MCV 83.3 fl (80-99) 11/28/16 09:40 MCH 27.0 pg (26.0-30.0) 11/28/16 09:40 MCHC Differential 32.5 pg (28.0-36.0) 11/28/16 09:40 RDW 16.5 % (11.5-20.0) 11/28/16 09:40 Plt Count 194 Th/cmm (150-400) 11/28/16 09:40 MPV 8.0 fl 11/28/16 09:40 Neutrophils % 61.9 % (40.0-80.0) 11/28/16 09:40 Lymphocytes % 22.1 % (20.0-50.0) 11/28/16 09:40 Monocytes % 7.7 % (2.0-10.0) 11/28/16 09:40 Eosinophils % 8.3 % (0.0-5.0) H 11/28/16 09:40 Basophils % 0.0 % (0.0-2.0) 11/28/16 09:40 Sodium 137 mEq/L (136-145) 11/28/16 09:40 Potassium 3.9 mEq/L (3.5-5.1) 11/28/16 09:40 Chloride 98 mEq/L (98-107) 11/28/16 09:40 Carbon Dioxide 32.5 mEq/L (21.0-31.0) H 11/28/16 09:40 Anion Gap 10.4 (7.0-16.0) 11/28/16 09:40 BUN 36 mg/dL (7-25) H 11/28/16 09:40 Creatinine 8.8 mg/dL (0.7-1.3) H* 11/28/16 09:40 Est GFR ( Amer) 7.9 ml/min (>90) 11/28/16 09:40 Est GFR (Non-Af Amer) 6.6 ml/min 11/28/16 09:40 BUN/Creatinine Ratio 4.1 11/28/16 09:40 Glucose 133 mg/dL (70-105) H 11/28/16 09:40 POC Glucose 80 MG/DL (70 - 105) 11/26/16 23:58 Calcium 9.5 mg/dL (8.6-10.3) 11/28/16 09:40 Phosphorus 5.2 mg/dL (2.5-5.0) H 11/28/16 09:40 Total Bilirubin 0.4 mg/dL (0.3-1.0) 11/28/16 09:40 AST 12 U/L (13-39) L 11/28/16 09:40 ALT 5 U/L (7-52) L 11/28/16 09:40 Alkaline Phosphatase 126 U/L (34-104) H 11/28/16 09:40 Total Protein 5.8 gm/dL (6.0-8.3) L 11/28/16 09:40 Albumin 3.0 gm/dL (4.2-5.5) L 11/28/16 09:40 Globulin 2.8 gm/dL 11/28/16 09:40 Albumin/Globulin Ratio 1.1 (1.0-1.8) 11/28/16 09:40 - Physical Exam Vitals and I&O: Vital Signs Temp 98.2 F 11/29/16 08:00 Pulse 90 11/29/16 08:12 Resp 16 11/29/16 08:25 BP 158/95 11/29/16 08:12 Pulse Ox 95 11/29/16 08:00 Intake & Output 11/28/16 11/29/16 11/29/16 18:59 06:59 18:59 Intake Total 500 200 Output Total 2000 Balance -1500 200 Weight (lbs) 76.204 kg 74.389 kg Intake: Oral 500 200 Output: Hemodialysis 2000 Other: # Voids 0 1 # Bowel Movements 0 Active Medications: Current Medications Acetaminophen/Hydrocodone Bitart ([place] 5mg/325mg) 1 tab PO Q6H PRN PRN Reason: PAIN Stop: 01/25/17 19:58 Al Hydrox/Mg Hydrox/Simethicone (Maalox) 30 ml PO DAILY PRN PRN Reason: Upset Stomach / Indigestion Stop: 01/25/17 20:34 Ascorbic Acid (Vitamin C) 500 mg PO DAILY [facility] Stop: 01/26/17 08:59 Last Admin: 11/29/16 08:20 Dose: Not Given Aspirin (Aspirin Chewable) 81 mg PO DAILY [facility] Stop: 01/26/17 08:59 Last Admin: 11/29/16 08:13 Dose: 81 mg Atorvastatin Calcium (Lipitor) 10 mg PO HS JOHN PRN Reason: Protocol Stop: 01/25/17 20:59 Last Admin: 11/28/16 20:49 Dose: Not Given Benztropine Mesylate (Cogentin) 1 mg PO BID [facility] Stop: 01/26/17 08:59 Last Admin: 11/29/16 08:11 Dose: 1 mg Bisacodyl (Dulcolax 5 Mg Ec Tab) 10 mg PO DAILY PRN PRN Reason: Constipation Stop: 01/25/17 19:58 Divalproex Sodium (Depakote Dr) 500 mg PO DAILY [facility] PRN Reason: Protocol Stop: 01/26/17 08:59 Last Admin: 11/29/16 08:20 Dose: Not Given Epoetin Julius (Epogen) 5,000 units SUBQ TuThSa [facility] Stop: 01/30/17 10:16 Folic Acid (Folate) 1 mg PO DAILY [facility] Stop: 01/26/17 08:59 Last Admin: 11/29/16 08:20 Dose: Not Given Lactulose (Cephulac) 10 gm PO HS [facility] Stop: 01/25/17 20:59 Last Admin: 11/28/16 20:50 Dose: Not Given Levothyroxine Sodium (Synthroid) 0.05 mg PO DAILY JOHN Stop: 01/26/17 08:59 Last Admin: 11/29/16 08:13 Dose: 0.05 mg Lisinopril (Zestril) 10 mg PO BID [facility] Stop: 01/26/17 08:59 Last Admin: 11/29/16 08:12 Dose: 10 mg Pantoprazole Sodium (Protonix) 40 mg PO DAILY JOHN Stop: 01/26/17 08:59 Last Admin: 11/29/16 08:12 Dose: 40 mg Sevelamer Carbonate (Renvela) 2,400 mg PO AC JOHN Stop: 01/26/17 07:29 Last Admin: 11/29/16 09:44 Dose: Not Given Thiamine HCl (Vitamin B1) 100 mg PO DAILY JOHN Stop: 01/26/17 08:59 Last Admin: 11/29/16 08:20 Dose: Not Given Vitamin B Complex/Vit C/Folic Acid (Vitamin B Complex W/Vitamin C) 1 tab PO DAILY [facility] Stop: 01/26/17 08:59 Last Admin: 11/29/16 08:21 Dose: Not Given Ziprasidone (Geodon) 60 mg PO BID [facility] Stop: 01/26/17 08:59 Last Admin: 11/29/16 09:48 Dose: 60 mg General: congested, demented HEENT: NC/AT, PERRLA, EOMI, poor dentition Neck: Supple, No JVD, No thyromegaly Lungs: CTAB Cardiovascular: RRR, Normal S1, Normal S2, without murmur Abdomen: soft, non-tender, globular Extremities: excoriation, contracture Neurological: no change, lethargic, disorganized Internal Medicine Assmt/Plan - Assessment Assessment: ALOC FAILURE TO THRIVE 51/50 ESRD ON HD ANEMIA GERD COPD PARANOID SCHIZOPHRENIA - Plan Plan: cont on hd per renal renal diet will review labx psych follow up on 5149 dw rn Nutritional Asmnt/Malnutr-PDOC - Dietary Evaluation Malnutrition Findings (Please click <Entered> for more info): Nutritional Asmnt/Malnutrition Start: 11/27/16 16: 41 Text: Status: Complete Freq: Document 11/27/16 16:42 JIMMY (Rec: 11/27/16 16:52 JIMMY HOLLINGSWORTH -[id number]) Nutritional Asmnt/Malnutrition Patient General Information Nutritional Screening Consult Diagnosis ALOC, FTT Pertinent Medical Hx/Surgical Hx HTN, asthma/COPD, arthritis, HLD, chronic pain syndrome per MD notes Subjective Information RD received Nutrition Consult for FTT. Pt also seen for high risk trigger: FTT. Pt seen resting in bed while covered in blankets. Pt appeared of tall stature. Pt confirmed anthropometrics; pt stated he is 6'4" and UBW of 165 lb, 75 kg. Pt reported that he enjoys breakfast meals most, and prefers sausage, cream of wheat, hot cereals, hot foods, and Rice Krispies. Pt also requested double portions. RD to notify [facility] staff regarding pt's preferences. Pt denied any supplement use. Pt reported BM x1 (green in color, but solid ). Pt reported that he has been on dialysis since 2004. Per RN, no pending plans/ procedures. Per EMR, abd is soft and non- tender. I/O: 240/0 (+240 ml) per 12 hours. Current diet is adequate and appropriate. RD offered nutrition education; pt declined. Pt is familiar w/ foods high in potassium, sodium, and phosphorus when asked by RD. RD encouraged pt to try to maintain renal diet restrictions for improved kidney function. Current Diet Order/ Nutrition Support Renal Patient / S.O Can Pertinent Medications lipitor, renagel Pertinent Labs 11/26/16: POC BG 80 WNL Nutritional Hx/Data Height 1.93 m Height (Calculated Centimeters) 193.0 Current Weight (lbs) 76.204 kg Weight (Calculated Kilograms) 76.2 Weight (Calculated Grams) 77513.5 Usual body Weight (lbs) 165 % Usual Body Weight 102 [place] Body Weight 202 lb, 92 kg % [place] Body Weight 83 Recent Weight Change No Weight Status Approriate GI Symptoms GI Symptoms None Food Allergies No Current %PO Fair (50-74%) Estimated Nutritional Goals BEE in Kcals: Using Current wt Calories/Kcals/Kg 25-30 kcal/kg CBW for maintenance Kcals Calculated 7553-5767 kcal/day Protein: Using Current wt Protein g/k.2-1.5 gm/kg CBW for renal failure on HD Protein Calculated 91-114 gm/day Fluid: ml Per MD (renal failure) Nutritional Problem 1. Problem Problem Inadequate nutritional intakes Etiology related to lack of appetite/ preference for foods Signs/Symptoms: as evidenced by pt report and Dx of FTT. Malnutrition Alert Is there a minimum of two criteria No selected? Query Text:Check all the applicable criteria. A minimum of two criteria are recommended for diagnosis of either severe or non-severe malnutrition. Malnutrition Related to Morbid Obesity Malnutrition related to morbid obesity No Intervention/Recommendation Recommendations by RD Dietary Education by RD1 Increase Calorie Intake Comments * Recommend continuing renal diet per MD Expected Outcomes/Goals Expected Outcomes/Goals - Monitor appetite and PO intakes w/ goal of pt meeting at least 75% of estimated nutritional needs, labs trending WNL, normal GI function, and skin integrity/ wt maintenance within 3-5 days 11/27/16 16:51 Dietitian Notes by Ma. Joni [facility] Room/Bed: [facility] Dietitian Recommendation * Recommend continuing renal diet per MD Please refer to Nutrition Assessment for details. Initialized on 11/27/16 16:51 - END OF NOTE
[2016-11-29] MEDS: Atorvastatin Calcium 10 MG TAB PO SCH (21:07)
[2016-11-29] MEDS: Lactulose 10 Gm/15 mL 30mL UDC PO SCH (21:07)
[2016-11-30 05:04] LABS: % BASOPHILS 1.1 % (0.0-2.0); % EOSINOPHILS 10.8 % (0.0-5.0); % LYMPHOCYTES 25.7 % (20.0-50.0); % MONOCYTES 10.8 % (2.0-10.0); % NEUTROPHILS 51.6 % (40.0-80.0); HEMATOCRIT 30.3 % (41.0-60); HEMOGLOBIN 10.1 gm/dL (12-16); MEAN CELL VOLUME 82.6 fl (80-99); MEAN CORPUSCULAR HEMOGLOBIN 27.5 pg (26.0-30.0); MEAN CORPUSCULAR HGB CONC 33.3 pg (28.0-36.0); PLATELET COUNT 243 Th/cmm (150-400); RED BLOOD COUNT 3.67 Mil/cmm (4.30-5.70); RED CELL DISTRIBUTION WIDTH 16.8 % (11.5-20.0); WHITE BLOOD COUNT 5.8 Th/cmm (4.8-10.8)
[2016-11-30 05:18] LABS: ANION GAP 13.3 (7.0-16.0); BUN/CREATININE RATIO 3.9; CALCIUM SERUM 10.9 mg/dL (8.6-10.3); CARBON DIOXIDE 29.8 mEq/L (21.0-31.0); POTASSIUM SERUM 4.1 mEq/L (3.5-5.1)
[2016-11-30 05:22] LABS: CREATININE - SERUM 10.6 mg/dL (0.7-1.3)
[2016-11-30] MEDS: Benztropine 1 MG TAB PO SCH ×2 (10:55→16:44)
[2016-11-30] MEDS: Vitamin B Complex w/Vitamin C Tab PO SCH (10:55)
[2016-11-30] MEDS: Levothyroxine 0.05 Mg Tab PO SCH (10:55)
[2016-11-30] MEDS: Aspirin 81mg Chewable Tab PO SCH (10:57)
[2016-11-30] MEDS: Pantoprazole 40 mg EC Tab PO SCH (10:57)
--- NOTE | 2016-11-30 16:48 | General Progress Note ---
Subjective - Review of Systems Service Date: 11/30/16 Events since last encounter: none Subjective: no complaints Objective - Results Result Diagrams: 11/30/16 04:35 11/30/16 04:35 Recent Labs: Laboratory Last Values WBC 5.8 Th/cmm (4.8-10.8) 11/30/16 04:35 RBC 3.67 Mil/cmm (4.30-5.70) L 11/30/16 04:35 Hgb 10.1 gm/dL (12-16) L 11/30/16 04:35 Hct 30.3 % (41.0-60) L D 11/30/16 04:35 MCV 82.6 fl (80-99) 11/30/16 04:35 MCH 27.5 pg (26.0-30.0) 11/30/16 04:35 MCHC Differential 33.3 pg (28.0-36.0) 11/30/16 04:35 RDW 16.8 % (11.5-20.0) 11/30/16 04:35 Plt Count 243 Th/cmm (150-400) D 11/30/16 04:35 MPV 8.0 fl 11/30/16 04:35 Neutrophils % 51.6 % (40.0-80.0) 11/30/16 04:35 Lymphocytes % 25.7 % (20.0-50.0) 11/30/16 04:35 Monocytes % 10.8 % (2.0-10.0) H 11/30/16 04:35 Eosinophils % 10.8 % (0.0-5.0) H 11/30/16 04:35 Basophils % 1.1 % (0.0-2.0) 11/30/16 04:35 Sodium 136 mEq/L (136-145) 11/30/16 04:35 Potassium 4.1 mEq/L (3.5-5.1) 11/30/16 04:35 Chloride 97 mEq/L (98-107) L 11/30/16 04:35 Carbon Dioxide 29.8 mEq/L (21.0-31.0) 11/30/16 04:35 Anion Gap 13.3 (7.0-16.0) 11/30/16 04:35 BUN 41 mg/dL (7-25) H 11/30/16 04:35 Creatinine 10.6 mg/dL (0.7-1.3) H* 11/30/16 04:35 Est GFR ( Amer) 6.4 ml/min (>90) 11/30/16 04:35 Est GFR (Non-Af Amer) 5.3 ml/min 11/30/16 04:35 BUN/Creatinine Ratio 3.9 11/30/16 04:35 Glucose 100 mg/dL (70-105) 11/30/16 04:35 POC Glucose 80 MG/DL (70 - 105) 11/26/16 23:58 Calcium 10.9 mg/dL (8.6-10.3) H 11/30/16 04:35 Phosphorus 5.2 mg/dL (2.5-5.0) H 11/28/16 09:40 Total Bilirubin 0.4 mg/dL (0.3-1.0) 11/28/16 09:40 AST 12 U/L (13-39) L 11/28/16 09:40 ALT 5 U/L (7-52) L 11/28/16 09:40 Alkaline Phosphatase 126 U/L (34-104) H 11/28/16 09:40 Ammonia 44 umol/L (16-53) 11/30/16 04:35 B-Natriuretic Peptide 352.0 pg/mL (5.0-100.0) H 11/30/16 04:35 Total Protein 5.8 gm/dL (6.0-8.3) L 11/28/16 09:40 Albumin 3.0 gm/dL (4.2-5.5) L 11/28/16 09:40 Globulin 2.8 gm/dL 11/28/16 09:40 Albumin/Globulin Ratio 1.1 (1.0-1.8) 11/28/16 09:40 - Physical Exam Vitals and I&O: Vital Signs Temp 97.4 F 11/30/16 15:53 Pulse 61 11/30/16 15:53 Resp 19 11/30/16 15:53 BP 141/81 11/30/16 15:53 Pulse Ox 98 11/30/16 15:53 Intake & Output 11/29/16 11/30/16 11/30/16 18:59 06:59 18:59 Intake Total 500 100 Balance 500 100 Weight (lbs) 74.389 kg 76.022 kg Intake: Oral 500 100 Other: # Voids 3 2 # Bowel Movements 0 Active Medications: Current Medications Acetaminophen/Hydrocodone Bitart ([place] 5mg/325mg) 1 tab PO Q6H PRN PRN Reason: PAIN Stop: 01/25/17 19:58 Al Hydrox/Mg Hydrox/Simethicone (Maalox) 30 ml PO DAILY PRN PRN Reason: Upset Stomach / Indigestion Stop: 01/25/17 20:34 Ascorbic Acid (Vitamin C) 500 mg PO DAILY [facility] Stop: 01/26/17 08:59 Last Admin: 11/30/16 10:55 Dose: 500 mg Aspirin (Aspirin Chewable) 81 mg PO DAILY [facility] Stop: 01/26/17 08:59 Last Admin: 11/30/16 10:57 Dose: 81 mg Atorvastatin Calcium (Lipitor) 10 mg PO HS [facility] PRN Reason: Protocol Stop: 01/25/17 20:59 Last Admin: 11/29/16 21:07 Dose: 10 mg Benztropine Mesylate (Cogentin) 1 mg PO BID [facility] Stop: 01/26/17 08:59 Last Admin: 11/30/16 16:44 Dose: Not Given Bisacodyl (Dulcolax 5 Mg Ec Tab) 10 mg PO DAILY PRN PRN Reason: Constipation Stop: 01/25/17 19:58 Divalproex Sodium (Depakote Dr) 500 mg PO DAILY [facility] PRN Reason: Protocol Stop: 01/26/17 08:59 Last Admin: 11/30/16 10:55 Dose: 500 mg Epoetin Julius (Epogen) 5,000 units SUBQ TuThSa [facility] Stop: 01/30/17 10:16 Folic Acid (Folate) 1 mg PO DAILY [facility] Stop: 01/26/17 08:59 Last Admin: 11/30/16 10:56 Dose: 1 mg Lactulose (Cephulac) 10 gm PO HS [facility] Stop: 01/25/17 20:59 Last Admin: 11/29/16 21:07 Dose: Not Given Levothyroxine Sodium (Synthroid) 0.05 mg PO DAILY [facility] Stop: 01/26/17 08:59 Last Admin: 11/30/16 10:55 Dose: 0.05 mg Lisinopril (Zestril) 10 mg PO BID [facility] Stop: 01/26/17 08:59 Last Admin: 11/30/16 16:44 Dose: Not Given Miscellaneous (Clinical Monitoring) 1 ea MC DAILY PRN PRN Reason: RENAL Stop: 01/29/17 09:06 Pantoprazole Sodium (Protonix) 40 mg PO DAILY JOHN Stop: 01/26/17 08:59 Last Admin: 11/30/16 10:57 Dose: 40 mg Sevelamer Carbonate (Renvela) 2,400 mg PO AC JOHN Stop: 01/26/17 07:29 Last Admin: 11/30/16 16:44 Dose: Not Given Thiamine HCl (Vitamin B1) 100 mg PO DAILY JOHN Stop: 01/26/17 08:59 Last Admin: 11/30/16 10:54 Dose: 100 mg Vitamin B Complex/Vit C/Folic Acid (Vitamin B Complex W/Vitamin C) 1 tab PO DAILY JOHN Stop: 01/26/17 08:59 Last Admin: 11/30/16 10:55 Dose: 1 tab Ziprasidone (Geodon) 60 mg PO BID JOHN Stop: 01/26/17 08:59 Last Admin: 11/30/16 16:44 Dose: Not Given Physical Exam: AAOX3 NAD HEAD NC/AT SCLERAE ANICTERIC OP MOIST NECK SUPPLE CV RRR LUNGS CTA B ABD SOFT NTND EXT NO EDEMA RUE AVF +thrill/bruit Assessment/Plan - Problem List Patient Problems: All Active Problems AGGRESSION TOWARD OTHERS; 51/50 STATUS (Acute) - Assessment Assessment: 1. ESRD/DIALYSIS STATUS 2. HTN WITH ESRD 3. ANEMIA WITH ESRD 4. PSYCHOSIS 5. HYPERLIPIDEMIA - Plan Plan: DIALYSIS WEDNESDAY BP CONTROLLED F/U PSYCH SUPPORTIVE CARE ADD EPOGEN Nutritional Asmnt/Malnutr-PDOC - Dietary Evaluation Malnutrition Findings (Please click <Entered> for more info): Nutritional Asmnt/Malnutrition Start: 11/27/16 16: 41 Text: Status: Complete Freq: Document 11/27/16 16:42 JIMMY (Rec: 11/27/16 16:52 JIMMY HOLLING[place]ORTH -[email or web address]) Nutritional Asmnt/Malnutrition Patient General Information Nutritional Screening Consult Diagnosis ALOC, FTT Pertinent Medical Hx/Surgical Hx HTN, asthma/COPD, arthritis, HLD, chronic pain syndrome per MD notes Subjective Information RD received Nutrition Consult for FTT. Pt also seen for high risk trigger: FTT. Pt seen resting in bed while covered in blankets. Pt appeared of tall stature. Pt confirmed anthropometrics; pt stated he is 6'4" and UBW of 165 lb, 75 kg. Pt reported that he enjoys breakfast meals most, and prefers sausage, cream of wheat, hot cereals, hot foods, and Rice Krispies. Pt also requested double portions. RD to notify [facility] staff regarding pt's preferences. Pt denied any supplement use. Pt reported BM x1 (green in color, but solid ). Pt reported that he has been on dialysis since 2004. Per RN, no pending plans/ procedures. Per EMR, abd is soft and non- tender. I/O: 240/0 (+240 ml) per 12 hours. Current diet is adequate and appropriate. RD offered nutrition education; pt declined. Pt is familiar w/ foods high in potassium, sodium, and phosphorus when asked by RD. RD encouraged pt to try to maintain renal diet restrictions for improved kidney function. Current Diet Order/ Nutrition Support Renal Patient / S.O Can Pertinent Medications lipitor, renagel Pertinent Labs 11/26/16: POC BG 80 WNL Nutritional Hx/Data Height 1.93 m Height (Calculated Centimeters) 193.0 Current Weight (lbs) 76.204 kg Weight (Calculated Kilograms) 76.2 Weight (Calculated Grams) 93429.5 Usual body Weight (lbs) 165 % Usual Body Weight 102 [place] Body Weight 202 lb, 92 kg % [place] Body Weight 83 Recent Weight Change No Weight Status Approriate GI Symptoms GI Symptoms None Food Allergies No Current %PO Fair (50-74%) Estimated Nutritional Goals BEE in Kcals: Using Current wt Calories/Kcals/Kg 25-30 kcal/kg CBW for maintenance Kcals Calculated 5410-1550 kcal/day Protein: Using Current wt Protein g/k.2-1.5 gm/kg CBW for renal failure on HD Protein Calculated 91-114 gm/day Fluid: ml Per MD (renal failure) Nutritional Problem 1. Problem Problem Inadequate nutritional intakes Etiology related to lack of appetite/ preference for foods Signs/Symptoms: as evidenced by pt report and Dx of FTT. Malnutrition Alert Is there a minimum of two criteria No selected? Query Text:Check all the applicable criteria. A minimum of two criteria are recommended for diagnosis of either severe or non-severe malnutrition. Malnutrition Related to Morbid Obesity Malnutrition related to morbid obesity No Intervention/Recommendation Recommendations by RD Dietary Education by RD1 Increase Calorie Intake Comments * Recommend continuing renal diet per MD Expected Outcomes/Goals Expected Outcomes/Goals - Monitor appetite and PO intakes w/ goal of pt meeting at least 75% of estimated nutritional needs, labs trending WNL, normal GI function, and skin integrity/ wt maintenance within 3-5 days 11/27/16 16:51 Dietitian Notes by Ma. Charlotte Quinones Room/Bed: [facility] Dietitian Recommendation * Recommend continuing renal diet per MD Please refer to Nutrition Assessment for details. Initialized on 11/27/16 16:51 - END OF NOTE
--- NOTE | 2016-11-30 17:21 | Consultation ---
DATE OF CONSULTATION: 11/30/2016 HISTORY OF PRESENT ILLNESS: A 61-year-old male coming from as he was aggressive, paranoid, cursing at staff, combative. On [id number], the patient disoriented, not really engaged in interview, refusing some treatment and medications, cursing at staff. PAST MEDICAL HISTORY: Please see full H and P. FAMILY HISTORY: Noncontributory. PSYCH HISTORY: Schizophrenia. MENTAL STATUS EXAMINATION: Unkempt, disheveled, poor eye contact. Speech nonspontaneous. Mood "okay." Affect flat. Thought processes were tangential. No overt SI or HI. The patient appears to have some psychotic symptoms. Insight and judgment diminished. PROVISIONAL DIAGNOSIS: Schizophrenia, poor medication and treatment compliance. RECOMMENDATIONS AND PLAN: We will initiate a 14-day hold given his ongoing symptoms. He is not safe for discharge. [facility]# [id number]
[2016-11-30] MEDS: Atorvastatin Calcium 10 MG TAB PO SCH (21:20)
[2016-11-30] MEDS: Lactulose 10 Gm/15 mL 30mL UDC PO SCH (21:20)
[2016-12-01] MEDS: Hydrocodone/APAP 5mg/325mg Tab PO PRN ×2 (00:19→06:59)
[2016-12-01] MEDS ORDERED: Epoetin Alfa 20000 Units/mL Vial SUBQ SCH ×2 (10:17→16:00)
[2016-12-01] MEDS: Benztropine 1 MG TAB PO SCH ×2 (10:31→17:02)
[2016-12-01] MEDS: Levothyroxine 0.05 Mg Tab PO SCH (10:32)
[2016-12-01] MEDS: Pantoprazole 40 mg EC Tab PO SCH (10:34)
[2016-12-01] MEDS: Aspirin 81mg Chewable Tab PO SCH (10:45)
--- NOTE | 2016-12-01 12:20 | General Progress Note ---
Subjective - Review of Systems Service Date: 12/01/16 Events since last encounter: no new events. Being discharged today but no set location yet. I tried to arranage outpatient dialysis at the [facility] dialysis center but patient will need in patient dialysis due to no discharge destination. Objective - Results Result Diagrams: 11/30/16 04:35 11/30/16 04:35 Recent Labs: Laboratory Last Values WBC 5.8 Th/cmm (4.8-10.8) 11/30/16 04:35 RBC 3.67 Mil/cmm (4.30-5.70) L 11/30/16 04:35 Hgb 10.1 gm/dL (12-16) L 11/30/16 04:35 Hct 30.3 % (41.0-60) L D 11/30/16 04:35 MCV 82.6 fl (80-99) 11/30/16 04:35 MCH 27.5 pg (26.0-30.0) 11/30/16 04:35 MCHC Differential 33.3 pg (28.0-36.0) 11/30/16 04:35 RDW 16.8 % (11.5-20.0) 11/30/16 04:35 Plt Count 243 Th/cmm (150-400) D 11/30/16 04:35 MPV 8.0 fl 11/30/16 04:35 Neutrophils % 51.6 % (40.0-80.0) 11/30/16 04:35 Lymphocytes % 25.7 % (20.0-50.0) 11/30/16 04:35 Monocytes % 10.8 % (2.0-10.0) H 11/30/16 04:35 Eosinophils % 10.8 % (0.0-5.0) H 11/30/16 04:35 Basophils % 1.1 % (0.0-2.0) 11/30/16 04:35 Sodium 136 mEq/L (136-145) 11/30/16 04:35 Potassium 4.1 mEq/L (3.5-5.1) 11/30/16 04:35 Chloride 97 mEq/L (98-107) L 11/30/16 04:35 Carbon Dioxide 29.8 mEq/L (21.0-31.0) 11/30/16 04:35 Anion Gap 13.3 (7.0-16.0) 11/30/16 04:35 BUN 41 mg/dL (7-25) H 11/30/16 04:35 Creatinine 10.6 mg/dL (0.7-1.3) H* 11/30/16 04:35 Est GFR ( Amer) 6.4 ml/min (>90) 11/30/16 04:35 Est GFR (Non-Af Amer) 5.3 ml/min 11/30/16 04:35 BUN/Creatinine Ratio 3.9 11/30/16 04:35 Glucose 100 mg/dL (70-105) 11/30/16 04:35 POC Glucose 80 MG/DL (70 - 105) 11/26/16 23:58 Calcium 10.9 mg/dL (8.6-10.3) H 11/30/16 04:35 Phosphorus 5.2 mg/dL (2.5-5.0) H 11/28/16 09:40 Total Bilirubin 0.4 mg/dL (0.3-1.0) 11/28/16 09:40 AST 12 U/L (13-39) L 11/28/16 09:40 ALT 5 U/L (7-52) L 11/28/16 09:40 Alkaline Phosphatase 126 U/L (34-104) H 11/28/16 09:40 Ammonia 44 umol/L (16-53) 11/30/16 04:35 B-Natriuretic Peptide 352.0 pg/mL (5.0-100.0) H 11/30/16 04:35 Total Protein 5.8 gm/dL (6.0-8.3) L 11/28/16 09:40 Albumin 3.0 gm/dL (4.2-5.5) L 11/28/16 09:40 Globulin 2.8 gm/dL 11/28/16 09:40 Albumin/Globulin Ratio 1.1 (1.0-1.8) 11/28/16 09:40 - Physical Exam Vitals and I&O: Vital Signs Temp 98.4 F 12/01/16 04:00 Pulse 72 12/01/16 04:00 Resp 19 12/01/16 04:00 BP 148/82 12/01/16 04:00 Pulse Ox 98 12/01/16 04:00 Intake & Output 11/30/16 12/01/16 12/01/16 18:59 06:59 18:59 Intake Total 360 200 Output Total 0 Balance 360 200 Weight (lbs) 76.022 kg 77.224 kg Intake: Oral 360 200 Output: Urine 0 Other: # Voids 0 2 # Bowel Movements 0 Active Medications: Current Medications Acetaminophen/Hydrocodone Bitart ([place] 5mg/325mg) 1 tab PO Q6H PRN PRN Reason: PAIN Stop: 01/25/17 19:58 Last Admin: 12/01/16 06:59 Dose: 1 tab Al Hydrox/Mg Hydrox/Simethicone (Maalox) 30 ml PO DAILY PRN PRN Reason: Upset Stomach / Indigestion Stop: 01/25/17 20:34 Ascorbic Acid (Vitamin C) 500 mg PO DAILY [facility] Stop: 01/26/17 08:59 Last Admin: 11/30/16 10:55 Dose: 500 mg Aspirin (Aspirin Chewable) 81 mg PO DAILY [facility] Stop: 01/26/17 08:59 Last Admin: 11/30/16 10:57 Dose: 81 mg Atorvastatin Calcium (Lipitor) 10 mg PO HS [facility] PRN Reason: Protocol Stop: 01/25/17 20:59 Last Admin: 11/30/16 21:20 Dose: 10 mg Benztropine Mesylate (Cogentin) 1 mg PO BID [facility] Stop: 01/26/17 08:59 Last Admin: 11/30/16 16:44 Dose: Not Given Bisacodyl (Dulcolax 5 Mg Ec Tab) 10 mg PO DAILY PRN PRN Reason: Constipation Stop: 01/25/17 19:58 Divalproex Sodium (Depakote Dr) 500 mg PO DAILY [facility] PRN Reason: Protocol Stop: 01/26/17 08:59 Last Admin: 11/30/16 10:55 Dose: 500 mg Epoetin Julius (Epogen) 5,000 units SUBQ TuThSa [facility] Stop: 01/30/17 10:16 Folic Acid (Folate) 1 mg PO DAILY [facility] Stop: 01/26/17 08:59 Last Admin: 11/30/16 10:56 Dose: 1 mg Lactulose (Cephulac) 10 gm PO HS [facility] Stop: 01/25/17 20:59 Last Admin: 11/30/16 21:20 Dose: 10 gm Levothyroxine Sodium (Synthroid) 0.05 mg PO DAILY [facility] Stop: 01/26/17 08:59 Last Admin: 11/30/16 10:55 Dose: 0.05 mg Lisinopril (Zestril) 10 mg PO BID [facility] Stop: 01/26/17 08:59 Last Admin: 11/30/16 16:44 Dose: Not Given Miscellaneous (Clinical Monitoring) 1 ea MC DAILY PRN PRN Reason: RENAL Stop: 01/29/17 09:06 Pantoprazole Sodium (Protonix) 40 mg PO DAILY [facility] Stop: 01/26/17 08:59 Last Admin: 11/30/16 10:57 Dose: 40 mg Sevelamer Carbonate (Renvela) 2,400 mg PO AC [facility] Stop: 01/26/17 07:29 Last Admin: 12/01/16 07:00 Dose: 2,400 mg Thiamine HCl (Vitamin B1) 100 mg PO DAILY [facility] Stop: 01/26/17 08:59 Last Admin: 11/30/16 10:54 Dose: 100 mg Vitamin B Complex/Vit C/Folic Acid (Vitamin B Complex W/Vitamin C) 1 tab PO DAILY [facility] Stop: 01/26/17 08:59 Last Admin: 11/30/16 10:55 Dose: 1 tab Ziprasidone (Geodon) 60 mg PO BID [facility] Stop: 01/26/17 08:59 Last Admin: 12/01/16 11:42 Dose: 60 mg General: Alert HEENT: Atraumatic, PERRLA, EOMI Neck: Supple Cardiovascular: Regular rate Lungs: Clear to auscultation Abdomen: Soft Extremities: Other (good bruit noted over right arm AVF) Assessment/Plan - Problem List Patient Problems: All Active Problems AGGRESSION TOWARD OTHERS; 51/50 STATUS (Acute) - Assessment Assessment: Dialysis Status: Stable. WIll need dialysis today as inpatient due to no bed assignment at [place] Agression: Controlled. Monitor Nutritional Asmnt/Malnutr-PDOC - Dietary Evaluation Malnutrition Findings (Please click <Entered> for more info): Nutritional Asmnt/Malnutrition Start: 11/27/16 16: 41 Text: Status: Complete Freq: Document 11/27/16 16:42 JIMMY (Rec: 11/27/16 16:52 [email or web address]) Nutritional Asmnt/Malnutrition Patient General Information Nutritional Screening Consult Diagnosis ALOC, FTT Pertinent Medical Hx/Surgical Hx HTN, asthma/COPD, arthritis, HLD, chronic pain syndrome per MD notes Subjective Information RD received Nutrition Consult for FTT. Pt also seen for high risk trigger: FTT. Pt seen resting in bed while covered in blankets. Pt appeared of tall stature. Pt confirmed anthropometrics; pt stated he is 6'4" and UBW of 165 lb, 75 kg. Pt reported that he enjoys breakfast meals most, and prefers sausage, cream of wheat, hot cereals, hot foods, and Rice Krispies. Pt also requested double portions. RD to notify [facility] staff regarding pt's preferences. Pt denied any supplement use. Pt reported BM x1 (green in color, but solid ). Pt reported that he has been on dialysis since 2004. Per RN, no pending plans/ procedures. Per EMR, abd is soft and non- tender. I/O: 240/0 (+240 ml) per 12 hours. Current diet is adequate and appropriate. RD offered nutrition education; pt declined. Pt is familiar w/ foods high in potassium, sodium, and phosphorus when asked by RD. RD encouraged pt to try to maintain renal diet restrictions for improved kidney function. Current Diet Order/ Nutrition Support Renal Patient / S.O Can Pertinent Medications lipitor, renagel Pertinent Labs 11/26/16: POC BG 80 WNL Nutritional Hx/Data Height 1.93 m Height (Calculated Centimeters) 193.0 Current Weight (lbs) 76.204 kg Weight (Calculated Kilograms) 76.2 Weight (Calculated Grams) 29859.5 Usual body Weight (lbs) 165 % Usual Body Weight 102 [place] Body Weight 202 lb, 92 kg % [place] Body Weight 83 Recent Weight Change No Weight Status Approriate GI Symptoms GI Symptoms None Food Allergies No Current %PO Fair (50-74%) Estimated Nutritional Goals BEE in Kcals: Using Current wt Calories/Kcals/Kg 25-30 kcal/kg CBW for maintenance Kcals Calculated 2409-2137 kcal/day Protein: Using Current wt Protein g/k.2-1.5 gm/kg CBW for renal failure on HD Protein Calculated 91-114 gm/day Fluid: ml Per MD (renal failure) Nutritional Problem 1. Problem Problem Inadequate nutritional intakes Etiology related to lack of appetite/ preference for foods Signs/Symptoms: as evidenced by pt report and Dx of FTT. Malnutrition Alert Is there a minimum of two criteria No selected? Query Text:Check all the applicable criteria. A minimum of two criteria are recommended for diagnosis of either severe or non-severe malnutrition. Malnutrition Related to Morbid Obesity Malnutrition related to morbid obesity No Intervention/Recommendation Recommendations by RD Dietary Education by RD1 Increase Calorie Intake Comments * Recommend continuing renal diet per MD Expected Outcomes/Goals Expected Outcomes/Goals - Monitor appetite and PO intakes w/ goal of pt meeting at least 75% of estimated nutritional needs, labs trending WNL, normal GI function, and skin integrity/ wt maintenance within 3-5 days 11/27/16 16:51 Dietitian Notes by Ma. Charlotte Quinones Room/Bed: [facility] Dietitian Recommendation * Recommend continuing renal diet per MD Please refer to Nutrition Assessment for details. Initialized on 11/27/16 16:51 - END OF NOTE
[2016-12-01] MEDS: Vitamin B Complex w/Vitamin C Tab PO SCH (12:34)
--- NOTE | 2016-12-01 13:10 | Progress Notes ---
DATE: 12/01/2016 HISTORY OF PRESENT ILLNESS: The patient is a 61-year-old male coming from a custodial. He was aggressive, paranoid, cursing at staff, poorly med compliant. On [id number], the patient seems to be a lot calmer, more engaged in interview today, actually speaking with me today, notes that he wants to take his medications. He wants to take Geodon. "I love Geodon." Staff noting he has been a lot calmer, no cursing episodes. He has not hit anybody and he has been a lot more compliant in general. He is up and around out of bed. PAST MEDICAL HISTORY: Noted. PSYCHIATRIC HISTORY: Schizophrenia. MENTAL STATUS EXAMINATION: Unkempt. Mildly disheveled and unkempt. Better eye contact. Speech within normal limits. Mood "I feel fine." Affect constricted. Thought processes were more linear. No SI, no HI. The patient denying any psychotic symptoms, no hallucinations, no paranoia. Insight and judgment seem better. PROVISIONAL DIAGNOSES: 1. Schizophrenia. 2. Poor medication and treatment compliance. RECOMMENDATIONS AND PLAN: Improvement noted. The patient seems to be doing better. He is a lot more med compliant and no events over the past 24 hours and no combative behavior since he has been in the hospital. We will discharge him back to [place]. The patient is agreeable to continue medication compliance. JOB# [id number]
[2016-12-01 13:43] LABS: % BASOPHILS 1.6 % (0.0-2.0); % EOSINOPHILS 10.7 % (0.0-5.0); % LYMPHOCYTES 28.3 % (20.0-50.0); % MONOCYTES 12.4 % (2.0-10.0); HEMOGLOBIN 8.9 gm/dL (12-16); MEAN CORPUSCULAR HEMOGLOBIN 27.4 pg (26.0-30.0); MEAN CORPUSCULAR HGB CONC 33.4 pg (28.0-36.0); MEAN PLATELET VOLUME 7.7 fl; NEUTROPHILE ABSOLUTE 2.5 Th/cmm (1.8-8.0); PLATELET COUNT 221 Th/cmm (150-400); RED BLOOD COUNT 3.25 Mil/cmm (4.30-5.70); RED CELL DISTRIBUTION WIDTH 16.2 % (11.5-20.0); WHITE BLOOD COUNT 5.5 Th/cmm (4.8-10.8)
[2016-12-01 13:44] LABS: HEMATOCRIT 26.6 % (41.0-60)
[2016-12-01 13:59] LABS: ALB/GLOB RATIO 1.1 (1.0-1.8); ANION GAP 13.7 (7.0-16.0); BILIRUBIN,TOTAL 0.4 mg/dL (0.3-1.0); BUN/CREATININE RATIO 4.5; CALCIUM SERUM 10.1 mg/dL (8.6-10.3); CARBON DIOXIDE 27.4 mEq/L (21.0-31.0); POTASSIUM SERUM 4.1 mEq/L (3.5-5.1)
== END 2016-12-01 18:49 | disposition home or self-care (01) | DRG 682 ==
LOC: ER 17:45 → MSI 19:48
PROVIDERS: ADMIT Internal Medicine; ATTEND Internal Medicine
DX: I12.0 Hypertensive chronic kidney disease with stage 5 chronic kidney disease or end stage renal disease (principal); N18.6 End stage renal disease; F20.0 Paranoid schizophrenia; R62.7 Adult failure to thrive; Z99.2 Dependence on renal dialysis; E78.5 Hyperlipidemia, unspecified; K21.9 Gastro-esophageal reflux disease without esophagitis; E03.9 Hypothyroidism, unspecified; J44.9 Chronic obstructive pulmonary disease, unspecified; D64.9 Anemia, unspecified; M19.90 Unspecified osteoarthritis, unspecified site; G89.4 Chronic pain syndrome; F17.210 Nicotine dependence, cigarettes, uncomplicated; F29 Unspecified psychosis not due to a substance or known physiological condition
CPT/HCPCS: 36415-UA; 80048-TC; 80053-TC; 82140-TC; 82948-90; 83880-TC; 84100-TC; 85025-TC; 90937; J0885; J7030; Z7610